=== PATIENT | female | born 1995 | race Hispanic/Latino ===

== ENCOUNTER → 2020-02-18 | Outpatient (CLI) | payer OTHER | LOC: MRI 11:51 | PROVIDERS: ATTEND Internal Medicine Gastroenterology | DX: R79.89 Other specified abnormal findings of blood chemistry (principal) | CPT/HCPCS: 74181; 81025 ==

== ENCOUNTER 2020-03-28 12:22 | Emergency (ER) | payer OTHER ==
[~2020-03-28] VITALS: Ht 149.9 cm; Wt 43.1 kg
[2020-03-28] MEDS ORDERED: BELLADONNA ALK/PHENOBARBITAL 5 ML UDC PO ONE (13:00)
[2020-03-28] MEDS ORDERED: MAGNESIUM/ALUMINUM/SIMETHICONE 30 ML UDC PO ONE (13:00)
[2020-03-28] MEDS ORDERED: LIDOCAINE VISC 2% SOLN 15 ML UDC PO ONE (13:00)
[2020-03-28 16:32] VITALS: BP 118/71
== END 2020-03-28 16:34 | disposition home or self-care (01) ==
LOC: ER 12:28
DX: R07.89 Other chest pain (principal); K29.70 Gastritis, unspecified, without bleeding; R13.10 Dysphagia, unspecified
CPT/HCPCS: 71046; 99282

== ENCOUNTER 2022-04-12 21:33 | Emergency (ER) | payer OTHER ==
[~2022-04-12] VITALS: Ht 149.9 cm; Wt 43.1 kg
[2022-04-12] MEDS ORDERED: ONDANSETRON HCL 4 MG ORAL DISINTEGRATING TAB PO ONE (21:45)
[2022-04-12 22:00] LABS: CLARITY,URINE SL CLOUDY (CLEAR); COLOR,URINE YELLOW (YELLOW)
[2022-04-12 22:01] LABS: KETONES,URINE NEGATIVE (NEGATIVE); LEUKOCYTE ESTERASE ,URINE NEGATIVE (NEGATIVE); NITRITE,URINE NEGATIVE (NEGATIVE); PROTEIN,URINE DIPSTICK NEGATIVE (NEGATIVE); URINE UROBILINOGEN 0.2 mg/dL (0.2 - 1)
[2022-04-12 22:05] LABS: BACTERIA,URINE FEW /HPF; EPITHELIAL CELLS,URINE FEW /LPF; WBC,URINE (MAN) 0-5 /HPF (0-5)
[2022-04-12] MEDS ORDERED: ONDANSETRON ODT4 MG PO (23:35)
[2022-04-12] MEDS ORDERED: CEFDINIR300 MG PO (23:35)
[2022-04-12] MEDS ORDERED: PYRIDIUM200 MG PO (23:35)
[2022-04-12 23:45] VITALS: BP 114/76
== END 2022-04-12 23:47 | disposition home or self-care (01) ==
LOC: ER 21:41
DX: R30.0 Dysuria (principal); N30.91 Cystitis, unspecified with hematuria; M54.50 Low back pain, unspecified
CPT/HCPCS: 74176; 81001; 81025; 99283; Q0162

== ENCOUNTER 2024-03-14 17:06 | Emergency (ER) | payer MEDICARE, OTHER ==
[~2024-03-14] VITALS: Ht 149.9 cm; Wt 63.5 kg
[~2024-03-14 17:06] MED LIST: CEFDINIR300 MG PO; ONDANSETRON ODT4 MG PO; PYRIDIUM200 MG PO
[2024-03-14 18:36] LABS: BASOPHILS % 0.3 % (0.0-1.0); EOSINOPHILS # (AUTO) 0.1 (0.0-0.4); EOSINOPHILS % 0.8 % (0.0-6.0); HEMATOCRIT 36.5 % (34.2-44.1); HEMOGLOBIN 10.7 g/dL (12.0-16.0); LYMPHOCYTES % 15.2 % (18.0-39.1); MEAN CORPUSCULAR HEMOGLOBIN 23.2 pg (28-32); MEAN CORPUSCULAR HGB CONC 29.3 g/dL (31-35); MONOCYTES # (AUTO) 0.7 (0.2-0.8); MONOCYTES % 4.9 % (4.4-11.3); NEUTROPHILS # (AUTO) 10.2 (2.1-6.9); NEUTROPHILS % 76.5 % (38.7-80.0); PLATELET COUNT 340 x10e3/uL (140-360); RED BLOOD COUNT 4.62 x10e6/uL (3.6-5.1); RED CELL DISTRIBUTION WIDTH 18.1 % (11.7-14.4); WHITE BLOOD COUNT 13.37 x10e3/uL (4.8-10.8)
[2024-03-14 18:50] LABS: ALBUMIN 4.3 g/dL (3.5-5.0); ALBUMIN/GLOBULIN RATIO 1.2 (0.8-2.0); ANION GAP 14.3 mmol/L (8-16); BILIRUBIN,TOTAL 0.4 mg/dL (0.2-1.2); CALCIUM 9.3 mg/dL (8.4-10.2); CREATININE, SERUM 0.79 mg/dL (0.57-1.11); TOTAL PROTEIN 7.9 g/dL (6.5-8.1)
[2024-03-14 18:51] LABS: LIPASE 26 U/L (8-78)
[2024-03-14 19:02] LABS: POTASSIUM 3.3 mmol/L (3.5-5.1)
[2024-03-14] MEDS: ONDANSETRON HCL INJ 2MG/ML 2ML 2 MG/ML VIAL IV STA (19:57)
[2024-03-14] MEDS: SODIUM CHLORIDE 0.9% 1000ML 1,000 ML IV ONE (19:57)
[2024-03-14] MEDS: DICYCLOMINE HCL 20 MG/2 ML VIAL IM ONE (19:57)
[2024-03-14] MEDS: KETOROLAC TROMETHAMINE 30 MG/ML VIAL IV STA (19:57)
[2024-03-14 20:30] LABS: CLARITY,URINE CLEAR (CLEAR); COLOR,URINE YELLOW (YELLOW); LEUKOCYTE ESTERASE ,URINE NEGATIVE (NEGATIVE); NITRITE,URINE NEGATIVE (NEGATIVE); PH,URINE 8.5 (5 - 7); PROTEIN,URINE DIPSTICK NEGATIVE (NEGATIVE)
[2024-03-14 20:31] LABS: BACTERIA,URINE FEW /HPF; BILIRUBIN,URINE NEGATIVE (NEGATIVE); GLUCOSE, URINE NEGATIVE (NEGATIVE); KETONES,URINE NEGATIVE (NEGATIVE); RBC,URINE 0-5 /HPF (0-5); URINE UROBILINOGEN 0.2 mg/dL (0.2 - 1); WBC,URINE (MAN) 0-5 /HPF (0-5)
[2024-03-14] MEDS ORDERED: PANTOPRAZOLE SO40 MG PO (20:38)
[2024-03-14] MEDS ORDERED: DICYCLOMINE HCL20 MG PO (20:38)
[2024-03-14] MEDS ORDERED: ONDANSETRON ODT4 MG SL (20:38)
[2024-03-14 20:39] VITALS: PULSE 73; RESP 16; TEMP 98.8; O2SAT 100
[2024-03-14 20:47] LABS: EPITHELIAL CELLS,URINE MODERATE /LPF
== END 2024-03-14 20:46 | disposition home or self-care (01) ==
LOC: ER 18:19
DX: R10.11 Right upper quadrant pain (principal); K29.70 Gastritis, unspecified, without bleeding; R11.2 Nausea with vomiting, unspecified; K21.9 Gastro-esophageal reflux disease without esophagitis
CPT/HCPCS: 36415; 76705; 80053; 81001; 83690; 84702; 85025; 93005; 99284; J1885; J2405; J2470; J7030